=== PATIENT | female | born 2005 ===

== ENCOUNTER 2024-02-08 07:26 | Day surgery (SDC) | payer OTHER, SELFPAY ==
[2024-02-08] VITALS (7 sets, daily range): BP systolic 97–129; BP diastolic 60–93; PULSE 64–96; RESP 16–22; TEMP 36.1–36.6; O2SAT 97–100
--- NOTE | 2024-02-08 | PATH_ITS ---
[facility] Accession Number: [id number] No. of containers..01 Tissue . 01 Material submitted: . esophagus, E-G Junction - GE JUNCTION NODULE . 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 No goblet cell metaplasia, dysplasia, malignancy, or Helicobacter organisms identified. . Specimen Comments: The presence of prominent reactive foveolar hyperplasia correlates with the endoscopic appearance of a nodule. [facility] 02/10/20241701 Local . 01 Electronically signed: . Be Castillo MD, Pathologist NPI- [id number] . 01 Gross description: . GE JUNCTION NODULE: Received in formalin are 2 fragment(s) of hawkins, soft tissue measuring 0.2 x 0.2 x 0.1 cm to 0.3 x 0.3 x 0.2 cm submitted entirely in 1 cassette(s) /[facility] 02/10/20241701 Local . 01 Microscopic: . GE JUNCTION NODULE: Given the presence of chronic inflammation among gastric type mucosa, an immunohistochemical stain was performed to evaluate for Helicobacter organisms and is negative. The control stains appropriately. * This test was developed and its performance characteristics determined by [employer]. It has not been cleared or approved by the U.S. Food and Drug Administration. The FDA has determined that such clearance or approval is not necessary. This test is used for clinical purposes. It should not be regarded as investigational or for research. . 01 Pathologist provided ICD-10: K20.90, K29.50 . 01 CPT . 673019, B09749 Specimen Comment: A courtesy copy of this report has been sent to [phone] Performed at: [address] [address], [place], [place] [id number] MD Be Castillo MD Phone: [phone]
--- NOTE | 2024-02-08 07:15 | SUR.OPER ---
egd scope 047
[2024-02-08] MEDS: LACTATED RINGERS 1,000 ML 42 ML IV (07:58)
--- NOTE | 2024-02-08 08:26 | PM.OP.EGD ---
Operative Date/Time/Diagnoses Date of procedure: 02/08/24 Pre-op diagnosis: See indication and findings Procedure & Clinicians Study performed: EGD Indications: EGD performed in October showed LA classification C esophagitis. Patient placed on omeprazole b.i.d. and is feeling much better. EGD necessary to check for complete healing Surgeon: Nilo Mcneal Procedure Notes Procedure in detail: After informed consent was obtained the patient was placed in left lateral decubitus position. The video upper scope was placed into the oropharynx and with the patient's help swelled into the esophagus. The esophagus stomach and duodenum were carefully examined. On withdrawal retroflexed view the GE junction was performed. The scope was removed. The patient tolerated procedure well. Blood loss none Complications none Sedation mac Findings 1. At 36 cm 1 area of erosion 3-4 mm on the background of a triangular healed area. At the base of this was a nodule approximately 6 mm in size. This was biopsied x2. This probably represented a sentinel nodule from incomplete healing. This was grade a to B esophagitis clearly improved from her grade C esophagitis previously. 2. Normal stomach 3. Normal duodenal bulb and sweep Patient should stay on her current omeprazole for at least another 2-3 months. We will be in touch regarding biopsies. Follow-up EGD may be warranted.
--- NOTE | 2024-02-08 08:28 | PM.HP.1 ---
History of Present Illness History of Present Illness Date Patient Seen: 02/08/24 Chief complaint: SDC Narrative: History of LA classification C esophagitis on EGD in October. Patient on omeprazole b.i.d. since then and has done well. Need for upper endoscopy to check for complete healing. PFSH Social History Smoking Status: Never smoker alcohol intake: never Meds Home Medications and Allergies Home Medications Medication Instructions Recorded Confirmed Type atenolol 25 mg tablet 25 mg PO DAILY 02/08/24 02/08/24 History citalopram 40 mg tablet 40 mg PO DAILY 02/08/24 02/08/24 History Allergies Allergy/AdvReac Type Severity Reaction Status Date / Time amoxicillin [From Augmentin] AdvReac Intermediate Rash Verified 02/08/24 07:40 clavulanic acid AdvReac Intermediate Rash Verified 02/08/24 07:40 [From Augmentin] methadone AdvReac Intermediate Rash Verified 02/08/24 07:40 Exam Vital Signs (past 8 hours): - 02/08/24 07:49 Temperature 97.9 F Pulse Rate 96 H Respiratory Rate 16 Blood Pressure 129/93 H Pulse Oximetry 97 Oxygen Delivery Method Room Air Oxygen Delivery Method Room Air Narrative Exam Narrative: Oropharynx free of lesions Chest clear to auscultation percussion Cardiac exam reveals no S3 or murmur Assessment & Plan Assessment & Plan narrative: Esophagitis on EGD in October need to check for complete healing. Risks, benefits, alternatives have been explained. Time-Based Coding :: [TOTAL MINUTES] spent with patient and on the chart (including review of chart, obtaining history, exam, reviewing outside data, placing orders, documenting exam and treatment plan, and counseling patient) on [DATE].
== END 2024-02-08 09:30 | disposition home or self-care (01) ==
PROVIDERS: Referring Provider Internal Medicine Gastroenterology; Visit Provider Internal Medicine Gastroenterology
PROC: 0DJ08ZZ Inspection of Upper Intestinal Tract, Via Natural or Artificial Opening Endoscopic (ICD-10-PCS; CPT 43235; principal; 2024-02-08 08:30)
DX: K20.90 Esophagitis, unspecified without bleeding (principal)
CPT/HCPCS: 43239; J2704

== ENCOUNTER 2024-04-17 16:14 | Emergency (ER) | payer OTHER, SELFPAY ==
--- NOTE | 2024-04-17 16:31 | EKG_ITS ---
[id number] [place] [id number] Test Date: 2024-04-17 Pat Name: Pretty Fulton Department: Room: Gender: Female Fitting Room Associate: REINALDO : 2005 Requested By: Order Number: [id number] Reading MD: Juventino Irizarry Measurements Intervals [place] Rate: 94 P: 71 ID: 110 QRS: 52 QRSD: 86 T: -52 QT: 344 QTc: 430 Interpretive Statements Sinus rhythm with short ID ST & T wave abnormality, consider inferior ischemia ST & T wave abnormality, consider anterior ischemia Electronically Signed On 04-18-2024 13:39:14 PDT by Juventino Irizarry
[2024-04-17 16:36] VITALS: BP 124/70; PULSE 92; RESP 17; TEMP 37.2; O2SAT 98; BMI 30.1
--- NOTE | 2024-04-17 16:48 | DI.RAD.S_ITS ---
PROCEDURE: XR CHEST 2V INDICATIONS: cough TECHNIQUE: 2 views of the chest were acquired. COMPARISON: None. FINDINGS: Surgical changes and devices: None. Lungs and pleura: Lungs are clear. No pleural effusions or pneumothorax. Mediastinum: Mediastinal contours are normal. Heart size is normal. Bones and chest wall: No suspicious bony abnormalities. Soft tissues appear unremarkable. IMPRESSION: No focal infiltrates are seen. No acute cardiopulmonary abnormality is seen. Dictated by: Froylan Solis M.D. on 04/17/2024 at 16:28 Approved by: Froylan Solis M.D. on 04/17/2024 at 16:28
[2024-04-17 16:49] LABS: Strep Grp A by PCR Rapid Negative (Negative)
[2024-04-17] MEDS: ONDANSETRON 4 MG ODT SL (16:54)
[2024-04-17 17:20] LABS: Influenza A - CEPHEID Flu A NEGATIVE (NEGATIVE); Influenza B - CEPHEID Flu B NEGATIVE (NEGATIVE)
[2024-04-17 17:37] LABS: COVID-19 CEPHEID 4-PLEX PCR Negative (Negative)
--- NOTE | 2024-04-17 17:53 | ED_ITS ---
<Statement entered by Elgin Leone DO - 04/17/24 18:11> Insert mid level HPI - URI/Sore Throat General Chief Complaint: Upper Respiratory Symptoms Stated Complaint: cough,N/V, cold symptoms Time Seen by Provider: 04/17/24 16:22 Source: patient Mode of arrival: Family Vehicle History of Present Illness HPI Narrative: 18-year-old female presents to the ED with 2 days of sore throat, runny nose, cough, low-grade fever. Also endorses nausea, vomiting. No chest pain, shortness of breath, chills, diarrhea. Patient states that her has been sick at home as well. Related Data Home Medications Medication Instructions Recorded Confirmed atenolol 25 mg tablet 25 mg PO DAILY 02/08/24 02/08/24 citalopram 40 mg tablet 40 mg PO DAILY 02/08/24 02/08/24 Previous Rx's Medication Instructions Recorded ondansetron 4 mg disintegrating 4 mg PO Q8H PRN nausea and 04/17/24 tablet vomiting #14 tabs Allergies Allergy/AdvReac Type Severity Reaction Status Date / Time amoxicillin [From Augmentin] AdvReac Intermediate Rash Verified 04/17/24 16:41 clavulanic acid AdvReac Intermediate Rash Verified 04/17/24 16:41 [From Augmentin] methadone AdvReac Intermediate Rash Verified 04/17/24 16:41 Review of Systems Constitutional Constitutional: Denies chills, Denies fatigue, Reports fever(s), Denies frequent falls, Denies lethargy and Denies weakness Eyes Eyes: Denies change in vision, Denies eye discharge, Denies irritation and Denies loss of vision ENT Ears, Nose, Mouth, and Throat: Denies change in voice, Denies dizziness, Denies neck pain, Reports sore throat and Denies throat swelling Cardiovascular Cardiovascular: Denies chest pain, Denies irregular heart rhythm, Denies lightheadedness, Denies palpitations, Denies dyspnea, Denies dyspnea on exertion and Denies orthopnea Respiratory Respiratory: Reports cough, Denies dyspnea, Denies dyspnea on exertion and Denies wheezing Gastrointestinal Gastrointestinal: Denies abdominal pain, Denies change in bowel habits, Denies diarrhea, Reports nausea and Reports vomiting Musculoskeletal Musculoskeletal: Denies neck pain and Denies numbness Integumentary/Breasts Skin/Breast: Denies pruritus, Denies erythema, Denies rash and Denies wounds Neurologic Neurologic: Denies behavioral changes, Denies confusion, Denies dizziness, Denies frequent falls, Denies loss of vision, Denies numbness and Denies weakness Psychiatric Psychiatric: Denies anxiety, Denies behavioral changes, Denies confusion, Denies depression, Denies homicidal ideation and Denies suicidal ideation Endocrine Endocrine: Denies fatigue, Denies flushing and Denies palpitations Hematologic/Lymphatic Hematologic/Lymphatic: Denies easy bruising Allergic/Immunologic Allergic/Immunologic: Denies urticaria, Denies throat swelling and Denies wheezing Patient History Social History Smoking Status: Never smoker alcohol intake: never Smoking Status: Never smoker alcohol intake frequency: 0-2 drinks per day Substance Use Type: does not use Exam Narrative Exam Narrative: Const General:?cooperative, healthy appearing and comfortable [facility] Head:?normal to inspection Ears:?hearing grossly normal bilaterally Nose:?external nose normal Face and sinus:?normal facial exam and sinuses nontender Mouth:?oral mucosae normal Throat:?posterior oropharynx normal Eyes General:?appearance normal, both eyes and all related structures Neck Neck:?normal visual inspection and no lymphadenopathy noted Resp Effort & Inspection:?normal respiratory effort Auscultation:?clear to auscultation bilaterally Cardio Rate:?regular rate Rhythm:?regular rhythm GI Abdomen is soft, nondistended, nontender to palpation. Neuro General:?patient alert, patient awake and patient oriented x3 Initial Vital Signs Initial Vital Signs: Vital Signs Temperature 98.9 F 04/17/24 16:36 Pulse Rate 92 H 04/17/24 16:36 Respiratory Rate 17 04/17/24 16:36 Blood Pressure 124/70 04/17/24 16:36 Pulse Oximetry 98 04/17/24 16:36 Oxygen Delivery Method Room Air 04/17/24 16:36 Course Orders Ordered: ED Orders 04/17/24 16:23 Covid-19 + FLU A/B by PCR Stat Strep Grp A by PCR Rapid Stat 04/17/24 16:48 CXR [XR chest 2V] Stat Discontinued Medications Ondansetron HCl (Ondansetron 4 Mg Odt) 4 mg SL NOW ONE Stop: 04/17/24 16:50 Last Admin: 04/17/24 16:54 Dose: 4 mg Documented By: SB Vital Signs Vital signs: Vital Signs - 8 hr 04/17/24 16:36 Temperature 98.9 F Pulse Rate 92 H Respiratory Rate 17 Blood Pressure 124/70 Pulse Oximetry 98 Oxygen Delivery Method Room Air MDM - URI/Sore Throat Lab Data Labs: Lab Results 04/17/24 Range/Units 16:23 SARS-CoV-2 (PCR) Negative (Negative) Influenza A (RT-PCR) Flu a negative (NEGATIVE) Influenza B (RT-PCR) Flu b negative (NEGATIVE) Group A Strep (PCR) Negative (Negative) MDM Narrative Medical decision making narrative: 18-year-old female presents to the ED with 2 days of sore throat, runny nose, cough, low-grade fever. Concern for strep pharyngitis versus viral pharyngitis versus upper respiratory infection versus pneumonia versus other. Will obtain chest x-ray, respiratory panel, strep POC. Will give Zofran for nausea. Will reassess. Chest x-ray without acute findings. Patient's symptoms improved with Zofran. Respiratory panel and strep POC were negative. Discussed findings with patient. Recommend supportive care. Prescribed Zofran. ED return precautions discussed with patient. Patient verbalized understanding. Medical records reviewed: Yes Discharge Plan Departure Patient Disposition: Home Clinical Impression: Upper respiratory infection Instructions: DI for Viral Upper Respiratory Infection -- Adult Activity Restrictions/Additional Instructions: You were evaluated in the ED today for a fever and cough. The respiratory swab, chest x-ray, strep test were negative. It appears that you have a viral upper respiratory infection that is causing your symptoms. Your symptoms improved with Zofran. You are being prescribed Zofran to take as needed at home. Please continue to stay well hydrated. You may take Tylenol, ibuprofen for symptoms. Please follow-up with your PCP as soon as possible. Return to the ED if you have worsening symptoms, chest pain, shortness of breath. Prescriptions: New ondansetron 4 mg tablet,disintegrating 4 mg PO Q8H PRN (Reason: nausea and vomiting) Qty: 14 0RF No Action citalopram 40 mg Tablet 40 mg PO DAILY atenolol 25 mg Tablet 25 mg PO DAILY Stand Alone Forms: Patient Portal/API, Work Release Note
[2024-04-17 17:56] VITALS: BP 107/57; PULSE 93; RESP 19; TEMP 37.1; O2SAT 98
== END 2024-04-17 17:57 | disposition home or self-care (01) ==
PROVIDERS: Emergency Provider Student in an Organized Health Care Education/Training Program
DX: J06.9 Acute upper respiratory infection, unspecified (principal); R50.9 Fever, unspecified; R05.9 Cough, unspecified; R11.2 Nausea with vomiting, unspecified; Z11.52 Encounter for screening for COVID-19
CPT/HCPCS: 71046; 87635; 87651; 93005; 99283; 99284